=== PATIENT | male | born 1960 | race Caucasian/White ===

== ENCOUNTER 2019-08-05 15:19 | Emergency (ER) | payer OTHER ==
[~2019-08-05] VITALS: Ht 180.3 cm; Wt 66.8 kg
[2019-08-05 15:36] VITALS: Ht 180.3 cm; Wt 66.8 kg
[2019-08-05] MEDS ORDERED: LOPRESSOR25 MG PO (15:39)
[2019-08-05] MEDS ORDERED: MUCINEX600 MG PO (15:39)
[2019-08-05] MEDS ORDERED: ACETAMINOPHEN325 MG PO (15:40)
[2019-08-05] MEDS ORDERED: IBUPROFEN200 MG PO (15:40)
[2019-08-05 16:08] LABS: BASOPHILS 0.2 % (0-2); EOSINOPHILS 0.2 % (0-7); HEMATOCRIT 41.3 % (42.0-54.0); HEMOGLOBIN 14.4 g/dL (13.5-17.5); IMMATURE GRANULOCYTES 0.2 % (0-5); LYMPHOCYTES 8.2 % (15-50); MCH 36.2 pg (26.0-34.0); MCHC 34.9 g/dL (31.0-37.0); MCV 103.8 fL (80.0-100.0); MEAN PLATELET VOLUME 11.6 fL (7.4-10.4); MONOCYTES 3.4 % (2-11); NEUTROPHILS 87.8 % (40-80); PLATELET COUNT 63 10x3/uL (130-400); RBC 3.98 10x6/uL (4.20-6.10); RDW 14.3 % (11.5-14.5); WBC 5.3 10x3/uL (4.8-10.8)
[2019-08-05 16:12] LABS: CALC OSMOLALITY 286 mosm/kg (275-300); CALCIUM 9.4 mg/dL (8.5-10.1); CARBON DIOXIDE 22.9 mmol/L (21.0-32.0); CHLORIDE - SERUM 97 mmol/L (98-107); CREATININE - SERUM 2.4 mg/dL (0.6-1.3); POTASSIUM - SERUM 4.9 mmol/L (3.5-5.1); SODIUM 139 mmol/L (136-145); UREA NITROGEN 43 mg/dL (7-18); eGFR NON AFRICAN AMERICAN 30 mL/min (90-120)
[2019-08-05 16:13] LABS: GLUCOSE 66 mg/dL (74-106)
[2019-08-05 16:14] LABS: APTT 41.3 SECONDS (22.8-39.4); INR 2.52 (0.85-1.17); PROTIME 26.4 SECONDS (11.6-15.0)
[2019-08-05 16:24] LABS: ALBUMIN 3.4 g/dL (3.4-5.0); ALKALINE PHOSPHATASE 200 U/L (46-116); BILIRUBIN - TOTAL 5.61 mg/dL (0.2-1.3); PROTEIN - SERUM 6.9 g/dL (6.4-8.2)
[2019-08-05 16:48] LABS: ALT (SGPT) 3335 U/L (10-68)
[2019-08-05 17:55] LABS: PLATELET ESTIMATE DECREASED
[2019-08-05 21:57] VITALS: BP 120/78
== END 2019-08-05 21:55 | disposition other institution (70) ==
LOC: D.ER 15:19
PROVIDERS: Emergency Medicine
DX: K92.0 Hematemesis (principal); F10.10 Alcohol abuse, uncomplicated